=== PATIENT | male | born 1960 | race Caucasian/White ===

== ENCOUNTER 2017-04-12 08:37 | Emergency (ER) | payer BC, OTHER ==
[~2017-04-12] VITALS: Ht 170.2 cm; Wt 104.7 kg
[2017-04-12 08:41] VITALS: BP 132/79
[2017-04-12] MEDS ORDERED: OXYcodone/APAP 5/325MG TABLET PO ONE (09:30)
[2017-04-12] MEDS ORDERED: OXYcodone/APAP 5/325MG TABLET ONE (09:32)
== END 2017-04-12 10:43 | disposition home or self-care (01) ==
LOC: ED 09:24
DX: S83.411A Sprain of medial collateral ligament of right knee, initial encounter (principal); E11.9 Type 2 diabetes mellitus without complications; Z79.01 Long term (current) use of anticoagulants; X50.1XXA Overexertion from prolonged static or awkward postures, initial encounter; Y93.89 Activity, other specified; Y92.410 Unspecified street and highway as the place of occurrence of the external cause; Y99.9 Unspecified external cause status
CPT/HCPCS: 29505